=== PATIENT | female | born 1960 | race Caucasian/White ===

== ENCOUNTER 2019-10-10 19:33 | Emergency (ER) | payer BC ==
[2019-10-10 19:41] VITALS: BP 149/79; PULSE 69; TEMP 98.3; BMI 37.1
--- NOTE | 2019-10-10 21:12 | PDOC ---
History of Present Illness - General Chief Complaint: Edema Stated Complaint: BILATERAL PAIN/BOTH LEGS/POSSIBLE BLOOD CLOTS Time Seen by Provider: 10/10/19 21:08 - History of Present Illness Initial Comments: 10/10/19 21:52 59y/o F hx of asthma presenting to the ED from urgent care with 3 days of bilateral leg swelling and burning pain. Pain is 5/10 in severity and is relieved with elevation. She has not noted any exacerbating factors. Pain has been accompanied by leg swelling. She has had some dry cough and some shortness of breath that preceded onset of her symptoms due to cold. She denies any fevers , chills, previous hx of clots, long travel , hemoptysis, recent surgery or immobilization, chest pain/pleuritic pain. Past History - Past Medical History Allergies/Adverse Reactions: Allergies Allergy/AdvReac Type Severity Reaction Status Date / Time No Known Allergies Allergy Verified 10/10/19 19:41 Home Medications: Ambulatory Orders Albuterol Sulfate Inhaler - [Ventolin HFA Inhaler -] 2 inh PO Q4H PRN #1 inh Azithromycin [Zithromax Z-MARCELINO (5 DAYS) -] 250 mg PO ASDIR #6 tablet 01/05/16 Pirbuterol Acetate [Maxair Autohaler] 14 gm IH BID PRN 01/05/16 Salmeterol/Fluticasone [Advair 100Mcg/50Mcg -] 1 inh PO BID #1 diskus 01/05/16 predniSONE [Deltasone -] 40 mg PO DAILY #10 tablet 01/05/16 Clindamycin [Cleocin -] 300 mg PO TID 7 Days #21 capsule 10/10/19 Asthma: Yes - Psycho Social/Smoking Cessation Hx Smoking History: Former smoker Have you smoked in the past 12 months: No Number of Cigarettes Smoked Daily: 3 If you are a former smoker, when did you quit?: 2014 Information on smoking cessation initiated: No Hx Alcohol Use: No Drug/Substance Use Hx: No Review of Systems - Review of Systems Constitutional: No: Chills, Fever HEENTM: No: Blurred Vision, Ear Pain Respiratory: Yes: Cough. No: Hemoptysis Cardiac (ROS): No: Chest Pain, Lightheadedness ABD/GI: No: Nausea, Vomiting : No: Burning, Dysuria Musculoskeletal: No: Back Pain Integumentary: Yes: Erythema. No: Change in Color Neurological: No: Headache, Numbness Hematologic/Lymphatic: No: Blood Clots, Easy Bleeding *Physical Exam - Vital Signs Last Vital Signs Temp Pulse Resp BP Pulse Ox 98.3 F 69 20 149/79 99 10/10/19 19:35 10/10/19 19:35 10/10/19 19:35 10/10/19 19:35 10/10/19 19:35 - Physical Exam Comments: 10/10/19 21:57 PE: GENERAL: Awake, alert, and fully oriented, in no acute distress HEAD: No signs of trauma, normocephalic, atraumatic EYES:EOMI, sclera anicteric, conjunctiva clear ENT: Auricles normal inspection, hearing grossly normal, nares patent, oropharynx clear without exudates. Moist mucosa NECK: Normal ROM, supple, JVD, or masses LUNGS: No distress, speaks full sentences, clear to auscultation bilaterally HEART: Regular rate and rhythm, normal S1 and S2, no murmurs, rubs or gallops, peripheral pulses normal and equal bilaterally. ABDOMEN: Soft, nontender, normoactive bowel sounds. No guarding, no rebound. No masses EXTREMITIES : lower extremities look erythematous up to mid calf. Tender to touch bilaterally with right more tender than left. 2+edema on right to mid calf. 1+ edema on left to mid calf., Normal range of motion, No clubbing or cyanosis NEUROLOGICAL: Cranial nerves II through XII grossly intact. Normal speech no focal sensorimotor deficits SKIN: Warm, dry , skin on legs warm to touch and erythematous with no clear demarcation. ED Treatment Course - LABORATORY CBC & Chemistry Diagram: 10/10/19 22:00 10/10/19 22:00 Medical Decision Making - Medical Decision Making 10/10/19 21:59 59y/o F hx of asthma presenting to the ED from urgent care with 3 days of bilateral leg swelling and burning pain. cellulititis vs P.E cbc, cmp, ekg, cxr, duplex u/s bilateral 10/10/19 23:09 EKG: normal sinus rhythm, left axis deviation, anterior infarct abnormal EKG. 10/10/19 23:23 duplex u/s No evidence for deep venous thrombosis. No Queen's cyst given tylenol 970mg Po for pain. pt disharged with prescription for clindamycin 300mg tid for 7 days. 10/10/19 23:31 10/10/19 23:34 Discharge - Discharge Information Problems reviewed: Yes Clinical Impression/Diagnosis: Cellulitis Qualifiers: Site of cellulitis: extremity Site of cellulitis of extremity: lower extremity Laterality: unspecified laterality Qualified Code(s): L03.119 - Cellulitis of unspecified part of limb Condition: Stable Disposition: HOME - Admission No - Additional Discharge Information Prescriptions: Clindamycin [Cleocin -] 300 mg PO TID 7 Days #21 capsule - Follow up/Referral Referrals: ON STAFF,NOT [Primary Care Provider] - - Patient Discharge Instructions Patient Printed Discharge Instructions: DI for Cellulitis -- Adult Additional Instructions: Take all of your antibiotics as ordered. Come to fast track in 2 days to have your legs checked in 2 days and follow-up with them in one week. If the affected cellulitic area increases in redness, warmth, pain or swelling come back to the ER. If you develop fever, chills, and/or malaise, come back to the ER.. - Post Discharge Activity
[2019-10-10] MEDS ORDERED: SODIUM CHLORIDE 0.9% 500 ML INFUS.BAG IV ONE (21:46)
[2019-10-10 22:06] LABS: BASO % 1.5 % (0-2.0); EOS % 6.7 % (0-4.5); HEMATOCRIT 39.7 % (32.4-45.2); HEMOGLOBIN 12.8 GM/dL (10.7-15.3); LYMPH % 22.5 % (8-40); MCH 24.8 pg (25.7-33.7); MCHC 32.2 g/dl (32.0-36.0); MEAN PLT VOLUME 6.9 fl (7.5-11.1); MONO % 12.3 % (3.8-10.2); PLATELET COUNT 334 K/MM3 (134-434); RBC 5.15 M/mm3 (3.60-5.2); RDW 15.9 % (11.6-15.6); WHITE BLOOD COUNT 9.4 K/mm3 (4.0-10.0)
[2019-10-10 22:44] LABS: ALBUMIN 3.4 g/dl (3.4-5.0); BILIRUBIN,TOTAL 0.2 mg/dL (0.2-1); BLOOD UREA NITROGEN 14.8 mg/dL (7-18); CALCIUM 8.7 mg/dL (8.5-10.1); CREATININE 0.8 mg/dL (0.55-1.3); TOT PROT 7.8 g/dl (6.4-8.2)
[2019-10-10 22:45] LABS: POTASSIUM 4.5 mmol/L (3.5-5.1)
[2019-10-10] MEDS ORDERED: ACETAMINOPHEN 500 MG TABLET (FP) PO ONE (23:14)
--- NOTE | 2019-10-10 23:14 | PDOC ---
Documentation entered by Liz Colon SCRIBE, acting as scribe for Jennifer Anderson MD. Jennifer Anderson MD: This documentation has been prepared by the chiibe, Liz Colon SCRIBE, under my direction and personally reviewed by me in its entirety. I confirm that the documentation accurately reflects all work, treatment, procedures, and medical decision making performed by me. Attending Attestation - Resident Resident Name: KaristephanTami - [facility] HPI: 10/10/19 22:48 The patient is a 59-year-old female with a past medical history significant for asthma who presents to the emergency department with leg pain. The patient presents with 3 days of bilateral leg pain, thats burning in quality, associated with redness. The reports pain relief with leg elevation. Denies fever or chills. The patient reports following up at Urgent Care for the pain, from where she was sent to the emergency department to r/o DVT. - Physicial Exam PE: 10/10/19 22:53 GENERAL: Awake, alert, and fully oriented, in no acute distress EXTREMITY: bilateral lower extremity swelling, symmetric and diffuse tenderness. Left: mild erythema, mild tenderness and minimal redness. Right: erythematous, tender and warm to touch. - Medical Decision Making 10/10/19 23:11 Pt presents to the ED complaining of bilateral LE edema, erythema and pain. Concern for DVT vs cellulitis. Will check duplex, give abx if duplex is negative.
[2019-10-10 23:16] LABS: INR 1.06 (0.83-1.09); PROTHROMBIN TIME (PATIENT) 12.5 SEC (9.7-13.0)
[2019-10-10] MEDS ORDERED: ACETAMINOPHEN 325 MG TABLET (FP) ONE (23:17)
[2019-10-10 23:19] LABS: ACTIVATED PTT 22.9 SECONDS (25.2-36.5)
--- NOTE | 2019-10-11 13:42 | EKG ---
Test Reason : Blood Pressure : / mmHG Vent. Rate : 069 BPM Atrial Rate : 069 BPM P-R Int : 142 ms QRS Dur : 088 ms QT Int : 422 ms P-R-T Axes : 046 -44 066 degrees QTc Int : 452 ms NORMAL SINUS RHYTHM LEFT AXIS DEVIATION CANNOT RULE OUT ANTERIOR INFARCT , AGE UNDETERMINED ABNORMAL ECG NO PREVIOUS ECGS AVAILABLE Confirmed by MD Huber, Neel ([id number]) on 10/11/2019 1:42:25 PM Referred By: Confirmed By:Neel Ngo MD
== END 2019-10-11 00:12 | disposition home or self-care (01) ==
LOC: JER 19:33
DX: L03.116 Cellulitis of left lower limb (principal); L03.115 Cellulitis of right lower limb; Z87.09 Personal history of other diseases of the respiratory system; Z87.891 Personal history of nicotine dependence
CPT/HCPCS: 36415; 71046-TC-FY; 80053; 85025; 85610; 85730; 93005; 93010; 93970-TC; 99283-25

== ENCOUNTER 2022-10-21 21:06 | Observation (INO) | payer BC ==
[2022-10-21 21:20] VITALS: BMI 34.7
[2022-10-21] MEDS ORDERED: ALBUTEROL SO4 2.5/IPRATROPIUM 0.5 INH SOL 3 ML VIAL.NEB. NEB ONE ×3 (21:41→22:21)
[2022-10-21] MEDS ORDERED: DEXAMETHASONE SOD PHOSPHATE 10 MG/1 ML VIAL ONE (22:19)
[2022-10-21] MEDS: DEXAMETHASONE 4 MG TABLET (FP) PO ONE ×2 (22:31→22:49)
[2022-10-21] MEDS ORDERED: DEXAMETHASONE SOD PHOSPHATE 10 MG/1 ML VIAL IM ONE (22:31)
[2022-10-21] MEDS ORDERED: ACETAMINOPHEN 1000 MG/100 ML BAG IVPB ONE (23:14)
[2022-10-21] MEDS ORDERED: ACETAMINOPHEN INJECTION 100 ML IVPB ONE (23:49)
[2022-10-21 23:56] LABS: VENOUS BASE EXCESS -2.1 mmol/L (-2-2); VENOUS O2 SATURATION 48.1 % (70-80); VENOUS PCO2 55.2 mmHg (38-52); VENOUS PH 7.282 (7.310-7.410)
[2022-10-21 23:58] LABS: BASO % 0.6 % (0-2.0); EOS % 1.9 % (0-4.5); HEMATOCRIT 40.8 % (32.4-45.2); HEMOGLOBIN 12.8 GM/dL (10.7-15.3); LYMPH % 15.8 % (8-40); MCH 23.6 pg (25.7-33.7); MCHC 31.4 g/dl (32.0-36.0); MEAN CELL VOLUME 75.2 fl (80-96); MEAN PLT VOLUME 7.3 fl (7.5-11.1); MONO % 8.9 % (3.8-10.2); NEUT % 72.8 % (42.8-82.8); PLATELET COUNT 300 10^3/uL (134-434); RBC 5.43 M/mm3 (3.60-5.2); RDW 16.7 % (11.6-15.6); WHITE BLOOD COUNT 7.7 K/mm3 (4.0-10.0)
[2022-10-22 00:16] LABS: INR 1.18 (0.83-1.09); PROTHROMBIN TIME (PATIENT) 13.6 SEC (9.7-13.0)
[2022-10-22 00:19] LABS: ACTIVATED PTT 28.6 SECONDS (25.2-36.5)
[2022-10-22 00:24] LABS: ALBUMIN 3.5 g/dl (3.4-5.0); BLOOD UREA NITROGEN 9.1 mg/dL (7-18); CALCIUM 8.3 mg/dL (8.5-10.1)
[2022-10-22 00:28] LABS: CREATININE 0.8 mg/dL (0.55-1.3)
[2022-10-22 00:29] LABS: BILIRUBIN,TOTAL 0.2 mg/dL (0.2-1); TOT PROT 8.3 g/dl (6.4-8.2)
[2022-10-22] MEDS ORDERED: MAGNESIUM SULF 50% (8.12 MEQ/2 ML-1 GM VIAL) IVPB ONE (00:30)
[2022-10-22] MEDS ORDERED: MAGNESIUM SULFATE IN WATER 2 GM/50 ML IVPB IVPB ONE (00:53)
[2022-10-22] MEDS ORDERED: ALBUTEROL SO4 0.083% IH SOL 2.5 MG/3 ML VIAL.NEB. NEB PRN (03:06)
[2022-10-22] MEDS ORDERED: ALBUTEROL SO4 2.5/IPRATROPIUM 0.5 INH SOL 3 ML VIAL.NEB. NEB ONE ×2 (03:44→09:27)
[2022-10-22] MEDS ORDERED: KCL 10 MEQ IVPB 30 MEQ/300 ML INFUS.BAG IVPB ONE (03:45)
[2022-10-22] MEDS ORDERED: [UNRECOGNIZED DRUG - OTHER] PO ONE (03:45)
[2022-10-22] MEDS: ALBUTEROL SO4 2.5/IPRATROPIUM 0.5 INH SOL 3 ML VIAL.NEB. NEB SCH ×5 (04:09→19:45)
[2022-10-22] MEDS: KCL 10 MEQ IVPB 10 MEQ/100 ML INFUS.BAG IVPB SCH ×3 (04:09→09:18)
[2022-10-22] MEDS: LACTATED RINGERS SOLUTION 1,000 ML/1,000 ML INFUS.BAG IV SCH ×2 (04:09→16:38)
[2022-10-22 08:52] LABS: HEMATOCRIT 37.8 % (32.4-45.2); HEMOGLOBIN 12.1 GM/dL (10.7-15.3); MCH 23.7 pg (25.7-33.7); MCHC 31.9 g/dl (32.0-36.0); MEAN CELL VOLUME 74.4 fl (80-96); MEAN PLT VOLUME 7.7 fl (7.5-11.1); PLATELET COUNT 312 10^3/uL (134-434); RBC 5.08 M/mm3 (3.60-5.2); RDW 15.9 % (11.6-15.6)
[2022-10-22] MEDS ORDERED: methylPREDNISolone NA SUCC 40 MG/1 ML VIAL ONE (09:28)
[2022-10-22] MEDS: methylPREDNISolone NA SUCC 40 MG/1 ML VIAL IVPUSH SCH ×2 (09:39→17:43)
[2022-10-22 09:40] LABS: BLOOD UREA NITROGEN 8.5 mg/dL (7-18)
[2022-10-22 09:42] LABS: LDL CHOLESTEROL (ONLY SJRH) 77 mg/dL (5-100)
[2022-10-22 09:43] LABS: CHOLESTEROL 118 mg/dL (50-200)
[2022-10-22 09:45] LABS: TRIGLYCERIDES 72 mg/dL (0-150)
[2022-10-22 09:46] LABS: ALBUMIN 3.2 g/dl (3.4-5.0); CREATININE 0.8 mg/dL (0.55-1.3); HDL CHOLESTEROL 37 mg/dL (40-60)
[2022-10-22 09:48] LABS: BILIRUBIN,TOTAL 0.2 mg/dL (0.2-1); TOT PROT 7.9 g/dl (6.4-8.2)
[2022-10-22 09:55] LABS: MAGNESIUM 2.2 mg/dL (1.8-2.4)
[2022-10-22 09:56] LABS: ANISOCYTOSIS 0; HELMET CELLS 0; HOWELL-JOLLY BODIES 0; MACROCYTOSIS 0; OVALOCYTE 0; ROULEAU 0; SICKELED CELLS 0; TARGET CELLS 0; TEAR DROP CELLS 0; TOXIC GRANULATION 0
[2022-10-22 10:00] LABS: CALCIUM 8.4 mg/dL (8.5-10.1)
[2022-10-22] MEDS ORDERED: OSELTAMIVIR PHOSPHATE 75 MG CAPSULE PO SCH (10:00)
[2022-10-22] MEDS: ACETAMINOPHEN 325 MG TABLET (FP) PO PRN (12:49)
[2022-10-22] MEDS: ENOXAPARIN NA (PORCINE) 40 MG/0.4 ML DISP.SYRIN SQ SCH (12:49)
[2022-10-22] MEDS: INSULIN SLIDING SCALE (NOVOLOG) 1 VIAL SQ SCH ×4 (12:50→21:21)
[2022-10-22] MEDS: BUDESONIDE/FORMETEROL FUMARATE 80/4.5 mcg INHALER IH SCH ×2 (16:40→21:22)
[2022-10-22] MEDS: LISINOPRIL 10 MG TABLET PO SCH (17:44)
[2022-10-22] MEDS: MELATONIN 5 MG TABLETS PO PRN (21:24)
[2022-10-23] MEDS: methylPREDNISolone NA SUCC 40 MG/1 ML VIAL IVPUSH SCH ×3 (02:30→18:47)
[2022-10-23] MEDS: LACTATED RINGERS SOLUTION 1,000 ML/1,000 ML INFUS.BAG IV SCH ×2 (03:07→16:36)
[2022-10-23] MEDS: INSULIN SLIDING SCALE (NOVOLOG) 1 VIAL SQ SCH ×4 (06:11→21:25)
[2022-10-23] MEDS: ALBUTEROL SO4 2.5/IPRATROPIUM 0.5 INH SOL 3 ML VIAL.NEB. NEB SCH ×4 (08:40→20:30)
[2022-10-23 10:09] LABS: BASO % 0.1 % (0-2.0); HEMATOCRIT 38.4 % (32.4-45.2); HEMOGLOBIN 12.1 GM/dL (10.7-15.3); LYMPH % 7.4 % (8-40); MCH 23.5 pg (25.7-33.7); MCHC 31.4 g/dl (32.0-36.0); MEAN CELL VOLUME 74.7 fl (80-96); MEAN PLT VOLUME 7.7 fl (7.5-11.1); MONO % 4.9 % (3.8-10.2); NEUT % 87.6 % (42.8-82.8); PLATELET COUNT 334 10^3/uL (134-434); RBC 5.14 M/mm3 (3.60-5.2); RDW 16.3 % (11.6-15.6); WHITE BLOOD COUNT 12.8 K/mm3 (4.0-10.0)
[2022-10-23] MEDS: ACETAMINOPHEN 325 MG TABLET (FP) PO PRN (10:10)
[2022-10-23] MEDS: BUDESONIDE/FORMETEROL FUMARATE 80/4.5 mcg INHALER IH SCH ×2 (10:11→21:25)
[2022-10-23] MEDS: ENOXAPARIN NA (PORCINE) 40 MG/0.4 ML DISP.SYRIN SQ SCH (10:11)
[2022-10-23] MEDS: LISINOPRIL 10 MG TABLET PO SCH (10:31)
[2022-10-23 10:52] LABS: BLOOD UREA NITROGEN 12.5 mg/dL (7-18)
[2022-10-23 10:53] LABS: CALCIUM 8.4 mg/dL (8.5-10.1); MAGNESIUM 2.4 mg/dL (1.8-2.4)
[2022-10-23 10:55] LABS: CREATININE 0.6 mg/dL (0.55-1.3)
[2022-10-23] MEDS: MELATONIN 5 MG TABLETS PO PRN (21:28)
[2022-10-24] MEDS: methylPREDNISolone NA SUCC 40 MG/1 ML VIAL IVPUSH SCH ×2 (01:04→10:11)
[2022-10-24] MEDS: LACTATED RINGERS SOLUTION 1,000 ML/1,000 ML INFUS.BAG IV SCH (05:41)
[2022-10-24] MEDS: INSULIN SLIDING SCALE (NOVOLOG) 1 VIAL SQ SCH ×4 (06:14→21:05)
[2022-10-24] MEDS: ALBUTEROL SO4 2.5/IPRATROPIUM 0.5 INH SOL 3 ML VIAL.NEB. NEB SCH ×4 (08:15→20:34)
[2022-10-24 09:24] LABS: BASO % 0.1 % (0-2.0); HEMATOCRIT 38.5 % (32.4-45.2); HEMOGLOBIN 12.1 GM/dL (10.7-15.3); LYMPH % 11.2 % (8-40); MCH 23.4 pg (25.7-33.7); MCHC 31.4 g/dl (32.0-36.0); MEAN CELL VOLUME 74.6 fl (80-96); MEAN PLT VOLUME 7.2 fl (7.5-11.1); MONO % 5.5 % (3.8-10.2); NEUT % 83.2 % (42.8-82.8); PLATELET COUNT 340 10^3/uL (134-434); RBC 5.16 M/mm3 (3.60-5.2); RDW 16.4 % (11.6-15.6); WHITE BLOOD COUNT 13.3 K/mm3 (4.0-10.0)
[2022-10-24 09:50] LABS: CALCIUM 8.6 mg/dL (8.5-10.1)
[2022-10-24 09:51] LABS: BLOOD UREA NITROGEN 12.9 mg/dL (7-18)
[2022-10-24 09:54] LABS: CREATININE 0.5 mg/dL (0.55-1.3)
[2022-10-24] MEDS: ENOXAPARIN NA (PORCINE) 40 MG/0.4 ML DISP.SYRIN SQ SCH (10:11)
[2022-10-24] MEDS: BUDESONIDE/FORMETEROL FUMARATE 80/4.5 mcg INHALER IH SCH ×2 (10:11→21:06)
[2022-10-24] MEDS: LISINOPRIL 10 MG TABLET PO SCH (10:11)
[2022-10-24] MEDS ORDERED: MAGNESIUM HYDROX 2400MG/30ML ORAL SUSPENSION 30 ML CUP PO ONE (17:28)
[2022-10-24] MEDS: MELATONIN 5 MG TABLETS PO PRN (21:05)
[2022-10-25] MEDS: LACTATED RINGERS SOLUTION 1,000 ML/1,000 ML INFUS.BAG IV SCH (05:07)
[2022-10-25] MEDS: INSULIN SLIDING SCALE (NOVOLOG) 1 VIAL SQ SCH ×2 (06:06→11:30)
[2022-10-25 06:07] VITALS: TEMP 97.5
[2022-10-25] MEDS: LISINOPRIL 10 MG TABLET PO SCH (09:00)
[2022-10-25] MEDS: ENOXAPARIN NA (PORCINE) 40 MG/0.4 ML DISP.SYRIN SQ SCH (09:00)
[2022-10-25] MEDS: ALBUTEROL SO4 2.5/IPRATROPIUM 0.5 INH SOL 3 ML VIAL.NEB. NEB SCH ×2 (09:03→13:28)
[2022-10-25] MEDS: BUDESONIDE/FORMETEROL FUMARATE 80/4.5 mcg INHALER IH SCH (09:03)
[2022-10-25 09:13] VITALS: BP 150/83; RESP 18
[2022-10-25] MEDS ORDERED: methylPREDNISolone NA SUCC 40 MG/1 ML VIAL IVPUSH SCH ×2 (10:00)
[2022-10-25] MEDS ORDERED: SODIUM CHLORIDE NASAL SPRAY 44 ML BOTTLE NS PRN (10:18)
[2022-10-25] MEDS ORDERED: POLYETHYLENE GLYCOL (HEALTHYLAX) 3350 17 GM PACKET PO SCH (10:30)
[2022-10-25 11:19] VITALS: PULSE 87
== END 2022-10-25 13:45 | disposition home or self-care (01) ==
LOC: JER 21:06 → JERBED 10-22 02:05 → J6W 10-22 11:36
PROVIDERS: ADMIT Internal Medicine; ATTEND Nurse Practitioner Family
PROC: 3E033NZ Introduction of Analgesics, Hypnotics, Sedatives into Peripheral Vein, Percutaneous Approach (ICD-10-PCS; principal; 2022-10-22)
PROC: 3E0F7GC Introduction of Other Therapeutic Substance into Respiratory Tract, Via Natural or Artificial Opening (ICD-10-PCS; 2022-10-22)
PROC: 3E023GC Introduction of Other Therapeutic Substance into Muscle, Percutaneous Approach (ICD-10-PCS; 2022-10-22)
PROC: 3E033GC Introduction of Other Therapeutic Substance into Peripheral Vein, Percutaneous Approach (ICD-10-PCS; 2022-10-22)
DX: J09.X2 Influenza due to identified novel influenza A virus with other respiratory manifestations (principal); J45.41 Moderate persistent asthma with (acute) exacerbation; E11.9 Type 2 diabetes mellitus without complications; I10 Essential (primary) hypertension; E78.5 Hyperlipidemia, unspecified; M35.00 Sjogren syndrome, unspecified; D86.9 Sarcoidosis, unspecified; E87.6 Hypokalemia; Z87.891 Personal history of nicotine dependence; E66.01 Morbid (severe) obesity due to excess calories; R06.02 Shortness of breath; R05.9 Cough, unspecified; Z68.34 Body mass index [BMI] 34.0-34.9, adult
CPT/HCPCS: 0241U-QW; 36415; 71045-TC-FY; 80048; 80053; 80061; 82803; 82962; 83036; 83735; 84100; 85025; 85610; 85730; 87040; 94010; 94150; 94640; 94761; 96372; 96374; 96375; 96376; 99285-25; G0378; J1100

== ENCOUNTER 2022-12-11 19:47 | Emergency (ER) | payer BC ==
[2022-12-11 19:51] VITALS: BP 139/83; PULSE 87; RESP 20; TEMP 98.2; BMI 34.7
== END 2022-12-11 21:10 | disposition left against medical advice (07) ==
LOC: JERFT 19:47
DX: M79.601 Pain in right arm (principal)
CPT/HCPCS: 99281-25